=== PATIENT | female | born 1960 | race Caucasian/White ===

== ENCOUNTER 2016-09-18 19:31 | Observation (INO) ==
--- NOTE | 2016-09-18 19:50 | Emergency Department Note ---
Disposition Clinical Impression: Chest pain Qualifiers: Chest pain type: precordial pain Qualified Code(s): R07.2 - Precordial pain Disposition: Admitted As Inpatient Condition: Good Time of Disposition: 21:05 Chest Pain HPI - General Chief Complaint: ED Chest Pain Stated Complaint: CP Time Seen by Provider: 09/18/16 19:41 Source: patient Mode of arrival: ambulatory Limitations: no limitations Vital Signs Reviewed: Yes Nursing Notes Reviewed: Yes - History of Present Illness HPI Narrative: Patient is a 56-year-old female with past medical history of hypertension, hyperlipidemia, BRCA gene and preemptive bilateral mastectomy and total hysterectomy. She presents today due to chest pain that began 30 minutes ago while at rest. She states that the pain is in the center of her chest, came on suddenly, rated 10 out of 10, sharp pressure, with radiation to her back, no nausea vomiting or sweating. She has never had anything like this before. No previous HI or stents. She has had a stress test in the past associated with it was several years ago. No heart catheter in the past. She did take any medications beforehand. Severity scale (1-10): 6 - Related Data Home Medications Medication Instructions Recorded Confirmed FLUoxetine HCl [Prozac] 20 mg PO DAILY 09/18/16 09/18/16 NIFEdipine XL (24 HR) [Procardia 60 mg PO DAILY 09/18/16 09/18/16 XL] Omeprazole [PriLOSEC] 40 mg PO DAILY 09/18/16 09/18/16 Allergies Allergy/AdvReac Type Severity Reaction Status Date / Time morphine Allergy Hives Verified 09/18/16 19:33 Constitutional: Denies: fever Cardiovascular: Reports: chest pain. Denies: palpitations Respiratory: Denies: cough, dyspnea, wheezes Gastrointestinal: Denies: abdominal pain, nausea, vomiting, diarrhea Genitourinary: Denies: urgency, dysuria, dyspareunia Musculoskeletal: Reports: back pain Integumentary: Denies: rash Neurological: Denies: headache, weakness, numbness, paresthesias Chest Pain PMH - Past Medical History Medical history: Reports: GERD, hypertension Psychiatric history: Reports: depression - Social History Smoking Status: Never smoker Alcohol use: Reports: none, occasionally, recent Drug use: Reports: none Physical Exam - General Limitations: no limitations General appearance: alert, in no apparent distress - Head Head exam: atraumatic, normocephalic, normal inspection - Eye Eye exam: Present: normal appearance, PERRL, EOMI - ENT ENT exam: normal exam, mucous membranes moist - Neck Neck exam: Present: normal inspection, full ROM, trachea midline - Chest Chest inspection: Present: normal inspection, symmetric chest wall rise - Respiratory Respiratory exam: Present: normal lung sounds bilaterally - Cardiovascular Cardiovascular exam: Present: regular rate, normal rhythm, normal heart sounds - Abdominal Exam Abdominal exam: Present: soft, Non-Tender. Absent: tenderness, distention, guarding, rebound, rigidity - Extremities Exam Extremities exam: Present: normal inspection, full ROM. Absent: tenderness, pedal edema - Neurological Exam Neurological exam: Present: alert, oriented X3 - Psychiatric Psychiatric exam: Present: normal affect, normal mood - Skin Skin exam: Present: warm, dry, intact, normal color Course Course Narrative: Mildly hypertensive with systolic in 140s. Physical exam showed clear lungs, heart regular rate and rhythm. No abdominal tenderness, abdomen soft and benign. We will give the patient aspirin 325 and nitroglycerin. Her pain is currently 3 out of 10. EKG showed normal sinus rhythm with no acute ST changes , no changes from previous EKG on 04/15/2012. Due to onset 30 minutes ago, will likely need to admit for further chest pain workup and observation. 21:03 troponin 0.00. CBC and BMP not concerning. Chest x-ray negative for any acute cardiopulmonary process. Discussed admission for chest pain brought with patient. We will admit to hospitalist for chest pain rule out. Chest X-Ray 09/18/16 19:44 IMPRESSION: No acute process. D/ / Anupam Ferrer MD / Anupam Ferrer MD Interpreting Provider: Anupam Ferrer MD Vital Signs Temperature 97.5 F L 09/18/16 19:33 Pulse Rate 96 09/18/16 19:33 Respiratory Rate 20 09/18/16 19:33 Blood Pressure 144/86 09/18/16 19:33 O2 Sat by Pulse Oximetry 99 09/18/16 19:33 Temperature 97.5 F L 09/18/16 19:33 Pulse Rate 81 09/18/16 21:09 Respiratory Rate 18 09/18/16 21:09 Blood Pressure 118/70 09/18/16 21:09 O2 Sat by Pulse Oximetry 96 09/18/16 21:09 Oxygen Delivery Oxygen Delivery Room Air Chest Pain - [facility] Narrative Medical decision making narrative: Mildly hypertensive with systolic in 140s. Physical exam showed clear lungs, heart regular rate and rhythm. No abdominal tenderness, abdomen soft and benign. We will give the patient aspirin 325 and nitroglycerin. Her pain is currently 3 out of 10. EKG showed normal sinus rhythm with no acute ST changes , no changes from previous EKG on 04/15/2012. Due to onset 30 minutes ago, will likely need to admit for further chest pain workup and observation. 21:03 troponin 0.00. CBC and BMP not concerning. Chest x-ray negative for any acute cardiopulmonary process. Discussed admission for chest pain brought with patient. We will admit to hospitalist for chest pain rule out. - Medical Records Medical records reviewed: Yes I reviewed the patient's medical records. - Lab Data Lab results reviewed: Yes I reviewed the patient's lab results. Result diagrams: 09/18/16 19:30 09/18/16 19:30 Lab Results 09/18/16 09/18/16 09/18/16 Range/Units 19:30 19:30 19:30 WBC 6.2 (4.3-11.1) K/mcL RBC 3.89 (3.82-4.97) M/mcL Hgb 13.0 (11.5-15.4) g/dL Hct 36.9 (35.3-44.9) % MCV 94.9 (83.0-100.0) fL MCH 33.4 H (28.0-33.3) pg MCHC 35.2 (31.6-35.5) g/dL RDW 12.9 (11.5-14.5) % Plt Count 327 (140-400) K/mcL MPV 8.9 L (9.4-12.4) fL Immature Gran % 0.3 (0-4) % Seg Neutrophils % 52.3 % Lymphocytes % 35.3 % Monocytes % 8.9 % Eosinophils % 2.7 % Basophils % 0.5 % Neutrophils # 3.3 (1.6-8.9) K/mcL Lymphocytes # 2.2 (0.6-4.6) K/mcL Monocytes # 0.6 (0.0-1.3) K/mcL Eosinophils # 0.2 (0.0-0.6) K/mcL Basophils # 0.0 (0.0-0.2) K/mcL PT 10.0 (9.4-12.1) Seconds INR 0.9 APTT 30.3 (26.0-36.0) Seconds D-Dimer 319 (0-500) ng/mLFEU Sodium 143 (136-145) mEq/L Potassium 3.3 L (3.5-4.5) mEq/L Chloride 108 (98-109) mEq/L Carbon Dioxide 22 (19-29) mEq/L BUN 18 (7-20) mg/dL Creatinine 0.82 (0.57-1.11) mg/dL Est GFR ( Amer) > 60 (> 60) Est GFR (Non-Af Amer) > 60 (> 60) BUN/Creatinine Ratio 22 (6-26) Glucose 113 H (70-99) mg/dL Calculated Osmolality 299 (280-300) Calcium 9.4 (8.6-10.8) mg/dL Troponin I (0-0.03) ng/mL 09/18/16 09/18/16 Range/Units 19:30 21:46 WBC (4.3-11.1) K/mcL RBC (3.82-4.97) M/mcL Hgb (11.5-15.4) g/dL Hct (35.3-44.9) % MCV (83.0-100.0) fL MCH (28.0-33.3) pg MCHC (31.6-35.5) g/dL RDW (11.5-14.5) % Plt Count (140-400) K/mcL MPV (9.4-12.4) fL Immature Gran % (0-4) % Seg Neutrophils % % Lymphocytes % % Monocytes % % Eosinophils % % Basophils % % Neutrophils # (1.6-8.9) K/mcL Lymphocytes # (0.6-4.6) K/mcL Monocytes # (0.0-1.3) K/mcL Eosinophils # (0.0-0.6) K/mcL Basophils # (0.0-0.2) K/mcL PT (9.4-12.1) Seconds INR APTT (26.0-36.0) Seconds D-Dimer (0-500) ng/mLFEU Sodium (136-145) mEq/L Potassium (3.5-4.5) mEq/L Chloride (98-109) mEq/L Carbon Dioxide (19-29) mEq/L BUN (7-20) mg/dL Creatinine (0.57-1.11) mg/dL Est GFR ( Amer) (> 60) Est GFR (Non-Af Amer) (> 60) BUN/Creatinine Ratio (6-26) Glucose (70-99) mg/dL Calculated Osmolality (280-300) Calcium (8.6-10.8) mg/dL Troponin I 0.00 0.00 (0-0.03) ng/mL - Radiology Data Radiology results reviewed: Yes I reviewed the patient's radiology results. - EKG Data EKG attestation: Yes I reviewed and interpreted this EKG. EKG results narrative: 09/18/2016 at 19:38. Rate 85. DC 159. QRS 108. QTC 416. Mild left axis deviation. T wave inversions in V1, V2, V3, V4, V5, V6. These are unchanged from previous EKG on 04/15/2012. no signs of STEMI Heart Score - Score History: Moderately Suspicious EKG: Normal Age: 45-65 Risk Factors: 1-2 risk factors Troponin: Less than normal limit HEART Score Total: 3 S.B.A.R. - S.Ximena.A.Kit Situation: Demographics, MOA Background: Presenting Complaint, Relevant PMH, Meds, & Allergies Assessment: Vital Signs, Course and respsone to treatment, Exam Concerns, Patient/Family Expectation, Pertinant Lab Results, Outstanding Labs Recommendation: Barrier(s) to disposition, Recommendation based on pending studies, treatments, or consults S.B.A.R. Report Given to: Dr. Nick CroweBIsabelARain Repor Time: 21:05 Attestation Statement - Attestation Attestation: I examined this patient and my medical decision-making was reviewed with the PASSENGER ELEVATOR OPERATOR/PA/Advanced Practice Nurse/Resident Physician. I agree with the documented findings, disposition and treatment plan as described except to the extent set forth below. Patient eating breathing or chest pain. Sudden onset was sitting in a bar after drinking 2 beers. Patient denies starting after eating. Never had pain like this before. It resolved about 10 minutes prior to her arrival. No cough no fever. No cardiac history. On examination she is awake and alert sitting up in bed in no acute distress. Lungs clear. Plan. Cardiac workup. Troponin negative. Admitted to medicine for further cardiac evaluation.
[2016-09-18] MEDS ORDERED: Nitroglycerin 0.4 MG TAB.SUBL SL PRN ×2 (19:53→21:31)
[2016-09-18] MEDS ORDERED: Aspirin 325 MG TABLET PO ONE (19:53)
[2016-09-18 20:02] LABS: Basophils % 0.5 %; Eosinophils # 0.2 K/mcL (0.0-0.6); Eosinophils % 2.7 %; Hematocrit 36.9 % (35.3-44.9); Immature Granulocytes % 0.3 % (0-4); Lymphocytes # 2.2 K/mcL (0.6-4.6); Lymphocytes % 35.3 %; Mean Corpuscular HGB Conc 35.2 g/dL (31.6-35.5); Mean Corpuscular Hemoglobin 33.4 pg (28.0-33.3); Mean Corpuscular Volume 94.9 fL (83.0-100.0); Mean Platelet Volume 8.9 fL (9.4-12.4); Monocytes # 0.6 K/mcL (0.0-1.3); Monocytes % 8.9 %; Neutrophils # 3.3 K/mcL (1.6-8.9); Platelet Count 327 K/mcL (140-400); Red Blood Count 3.89 M/mcL (3.82-4.97); Red Cell Distribution Width 12.9 % (11.5-14.5); Segmented Neutrophils % 52.3 %
[2016-09-18 20:09] LABS: INR 0.9
[2016-09-18 20:11] LABS: Activated Partial Thrombo Time 30.3 Seconds (26.0-36.0)
[2016-09-18 20:14] LABS: BUN/Creatinine Ratio 22 (6-26); Blood Urea Nitrogen 18 mg/dL (7-20); Calcium 9.4 mg/dL (8.6-10.8); Carbon Dioxide 22 mEq/L (19-29); Chloride 108 mEq/L (98-109); Glucose 113 mg/dL (70-99); Osmolality,Calculated 299 (280-300); Potassium 3.3 mEq/L (3.5-4.5); Sodium 143 mEq/L (136-145); eGFR For African Americans > 60 (> 60); eGFR For Non-African Americans > 60 (> 60)
[2016-09-18] MEDS ORDERED: Ipratropium/Albuterol Neb 3 ML IH PRN (21:31)
[2016-09-18] MEDS ORDERED: Naloxone 0.4 MG/ML INJ IVP PRN (21:33)
[2016-09-18] MEDS ORDERED: Acetaminophen 325 MG TABLET PO PRN (21:33)
[2016-09-18] MEDS ORDERED: Ondansetron 4 MG/2 ML VIAL IVP PRN (21:33)
--- NOTE | 2016-09-18 21:36 | Event Note ---
Date of Encounter: 09/18/16 Time of Encounter: 21:35 1. Chest pain Continue aspirin, monitor troponins, telemetry Stress test in the morning, check echocardiogram looking for wall motion abnormalities 2. Hypokalemia, replete as needed 3. Hypertension, stable 4. History of brca Note to follow by BETH Nielsen.
--- NOTE | 2016-09-18 21:45 | Internal Med History&Physical ---
<Merline Nielsen M - Last Filed: 09/18/16 21:56> Date of Encounter: 09/18/16 Time of Encounter: 21:39 Assessment and Plan (1) Chest pain Current visit: Yes Status: Acute Patient with sudden severe chest pain accompanied by lightheadedness, shortness of breath and weakness. Episode lasted approximately 20 minutes and resolved on its own. EKG showed normal sinus rhythm with no acute ST changes. Troponin negative at 0.0, D-dimer normal at 315. Patient with risk factors of hypertension. Will rule out ACS. Continuous customer support engineer serial troponins echocardiogram and stress test in the morning Lipid panel with morning labs Aspirin and atorvastatin daily Qualifiers: Chest pain type: precordial pain Qualified Code(s): R07.2 - Precordial pain (2) Hypokalemia Current visit: Yes Status: Acute Potassium of 3.3. 40mEq of PO potassium ordered. Recheck chemistry tomorrow morning. (3) Hypertension Current visit: Yes Status: Acute Has been controlled since arrival. Continue home dose of Nifedipine. Hydralazine PRN Qualifiers: Hypertension type: essential hypertension Qualified Code(s): I10 - Essential (primary) hypertension (4) DVT prophylaxis Current visit: Yes Status: Acute Up ad jesus Lovenox 40mg SQ daily Internal Medicine - H&P: HPI Chief complaint: chest pain Admitted From: Emergency Dept Plans for Post Hospital Care: Home History of present illness: Ms. Abebe is a 56 year old female with hypertension, GERD, and BRCA+ gene s/p prophylactic bilateral mastectomy and hysterectomy who presented to the ED today with complaint of chest pain that started 30 minutes prior to arrival. She reports the pain was sudden, severe, located in the middle of her chest and radiating to her back between her shoulder blades. She describes the pain as crushing, and it was accompanied by lightheadedness, shortness of breath and weakness. The pain started to go away on its own after about 20 minutes and by the time of my assessment, patient was pain-free. She denies any headache, palpitations, recent fever, chills, sweats, nausea, vomiting, or abdominal pain. Evaluation in the ED included an EKG which showed normal sinus rhythm wiht no acute ST changes and no changes from previous EKG in 2012. CXR showed no acute process. Troponin was negative at 0.0. D-dimer was normal at 315. She was mildly hypokalemic with potassium of 3.3. On exam, she was alert and oriented, in no acute distress. Heart had regular rate and rhythm and lungs were clear to auscultation bilaterally. Past Med Surg Social Fam HX - Past Medical History Medical history: GERD, hypertension Psychiatric history: depression - Past Surgical History Surgical History: breast surgery, hysterectomy - Social History Smoking Status: Never smoker Smokeless Tobacco Status: No Alcohol use: occasionally, recent Drug use: none - Family History Mother Living Status: Age at : 63 Cause of : Breast cancer Hx Family Cancer: Yes Father Living Status: Age at : 63 Cause of : Pancreatic cancer Hx Family Cancer: Yes Internal Medicine - H&P: Meds FLUoxetine HCl [Prozac] 20 mg PO DAILY 09/18/16 [History] NIFEdipine XL (24 HR) [Procardia XL] 60 mg PO DAILY 09/18/16 [History] Omeprazole [PriLOSEC] 40 mg PO DAILY 09/18/16 [History] Allergies morphine Allergy (Verified 09/18/16 19:33) Hives All Systems PM: A 10-system review of systems was performed and is negative for pertinent findings except as documented above in the HPI. - Constitutional Constitutional: weakness, no chills, no fever(s), no night sweats - EENT Eyes: no change in vision, no discharge, no pain, no photophobia Ears: no ear discharge, no ear pain, no tinnitus Nose, mouth and throat: no dysphagia, no nasal discharge, no neck pain, no sore throat - Cardiovascular Cardiovascular ROS IM: chest pain, dyspnea, lightheadedness, no diaphoresis, no palpitations, no syncope - Respiratory Respiratory: no cough, no dyspnea, no wheezing, no excessive phlegm production - Gastrointestinal Gastrointestinal: no abdominal pain, no diarrhea, no hematemesis, no hematochezia, no melena, no nausea, no vomiting - Genitourinary Genitourinary: no change in urinary stream, no dysuria, no flank pain, no hematuria - Musculoskeletal Musculoskeletal ROS IM: no numbness, no tingling - Integumentary Integumentary IM: no rash, no unusual bruising - Neurological Neurological ROS: no confusion, no convulsions, no focal weakness, no numbness, no tingling, no tremor(s) - Hematologic/Lymphatic Hematologic/Lymphatic: no easy bruising - Constitutional Vitals: Temp Pulse Resp BP Pulse Ox 97.5 F L 81 18 118/70 96 09/18/16 19:33 09/18/16 21:09 09/18/16 21:09 09/18/16 21:09 09/18/16 21:09 General appearance: Present: A&O X 3, pleasant, no acute distress - Head Head exam: Present: atraumatic, normocephalic - Eye Eye exam: Present: PERRL, conjuntiva pink, sclera anicteric Pupils: Present: PERRL - Neck Neck exam general surgery: Present: supple, trachea midline. Absent: lymphadenopathy - Respiratory Respiratory exam: Present: CTAB. Absent: accessory muscle use, rales, rhonchi, wheezes - Cardiovascular Cardiovascular exam: Present: RRR, +S1, +S2. Absent: diastolic murmur, gallop, rubs, systolic murmur - GI/Abdominal GI/Abdominal exam: Present: normal bowel sounds, soft, no peritoneal signs. Absent: distended, tenderness - Extremities Exam Extremities exam: Present: warm, radial pulses palpable and symetrical. Absent : calf tenderness, cyanotic, pedal edema - Neurological Exam Neurological exam: Present: CN II-XII intact, oriented X3, no focal deficits. Absent: facial droop, speech deficit - Skin Skin exam: Present: dry, intact Internal Med - H&P Results - Labs CBC & Chem 7: 09/18/16 19:30 09/18/16 19:30 Labs: Short CBC 09/18/16 Range/Units 19:30 WBC 6.2 (4.3-11.1) K/mcL Hgb 13.0 (11.5-15.4) g/dL Hct 36.9 (35.3-44.9) % Plt Count 327 (140-400) K/mcL Neutrophils # 3.3 (1.6-8.9) K/mcL BMP 09/18/16 19:30 Sodium 143 Potassium 3.3 L Chloride 108 Carbon Dioxide 22 BUN 18 Creatinine 0.82 Glucose 113 H Calcium 9.4 Cardiac Enzymes 09/18/16 Range/Units 19:30 Troponin I 0.00 (0-0.03) ng/mL - Impressions ITS Impressions Chest X-Ray 09/18/16 19:44 IMPRESSION: No acute process. D/ / Anupam Ferrer MD / Anupam Ferrer MD Interpreting Provider: Anupam Ferrer MD - Diagnostic Studies Chest x-ray Additional comments: Chest X-Ray 09/18/16 19:44 IMPRESSION: No acute process. D/ / Anupam Ferrer MD / Anupam Ferrer MD Interpreting Provider: Anupam Ferrer MD <Denis Holt H - Last Filed: 09/19/16 00:13> Date of Encounter: 09/19/16 Internal Medicine - H&P: HPI History of present illness: Ms. Abebe is a 56 year old female All Systems PM: A 10-system review of systems was performed and is negative for pertinent findings except as documented above in the HPI. - Constitutional Vitals: Temp Pulse Resp BP Pulse Ox 97.5 F L 72 18 145/85 96 09/18/16 23:26 09/18/16 23:26 09/18/16 23:26 09/18/16 23:26 09/18/16 23:26 Internal Med - H&P Results - Labs CBC & Chem 7: 09/18/16 19:30 09/18/16 19:30 - Attending Attestation 1. Chest pain Continue aspirin, monitor troponins, telemetry Stress test in the morning, check echocardiogram looking for wall motion abnormalities 2. Hypokalemia, replete as needed 3. Hypertension, stable 4. History of brca I examined this patient and my medical decision-making was reviewed with the HAIR DRYER/PA/Advanced Practice Nurse/Resident Physician. I agree with the documented findings, disposition and treatment plan as described except to the extent set forth below.
[2016-09-19 04:48] LABS: BUN/Creatinine Ratio 17 (6-26); Blood Urea Nitrogen 12 mg/dL (7-20); Carbon Dioxide 26 mEq/L (19-29); Chloride 108 mEq/L (98-109); Chol/HDL Ratio 3.9 (0-4.9); Cholesterol 240 mg/dL (< 200); Glucose 94 mg/dL (70-99); HDL Cholesterol 62 mg/dL (40-59); LDL Cholesterol,Calculated 163 mg/dL (0-99); Osmolality,Calculated 296 (280-300); Potassium 3.9 mEq/L (3.5-4.5); Sodium 143 mEq/L (136-145); Triglycerides 76 mg/dL (< 150); eGFR For African Americans > 60 (> 60); eGFR For Non-African Americans > 60 (> 60)
[2016-09-19] MEDS ORDERED: *HR* Enoxaparin 40 MG/0.4 ML SYRINGE SQ SCH (06:00)
[2016-09-19] MEDS ORDERED: NIFEdipine XL (24 HR) 60 MG TAB.ER.24 PO SCH (09:00)
[2016-09-19] MEDS ORDERED: FLUoxetine 20 MG CAPSULE PO SCH (09:00)
[2016-09-19] MEDS ORDERED: Aspirin 81 MG TAB.CHEW PO SCH (09:00)
[2016-09-19 11:19] VITALS: BP 125/83
--- NOTE | 2016-09-19 11:39 | Nuclear Medicine Stress Report ---
Exercise Nuclear Stress Name: Naomy Abebe Date of Study: 09/19/2016 Date: 1960 Ht: 61.0 in Medical Record#: [id number] Age: 56 Wt: 154.0 lb Gender: Female Order #: [id number] Location: [facility] Room: [facility] Supervising Provider: Facundo Summers CNP Reading Physician: [place] Vallejo MD, [facility] Ordering Physician: Jordana Kumar CNP Primary Care Physician: Anupam Woodruff DO Stress Technologist: Zainab Kitchen, YADIRA,[facility] Senior Coldfusion Developer: Mathew Lieberman Indications: Chest Pain Impression: Perfusion imaging was negative for ischemia or infarct. Exercise ECG was negative for ischemia. Exercise capacity was average. Patient had no chest pain with stress. No arrhythmias noted with stress. Gated EF = >70%. The LV is not dilated. There is evidence of TID. Stress Test Summary: Stress Test Type: Treadmill Protocol: [place] Baseline Information: Initial Heart Rate: 86 Blood Pressure: 132/82 Stress Information: Stress Time: 7 min 08 sec Test Terminated Due to (primary): Fatigue Maximum Blood Pressure: 132/50 Maximum Heart Rate: 147 Percent Maximum Heart Rate Achieved: 91 Double Product: [id number] METS Reached: 10.1 Symptoms: Fatigue Nuclear Summary: SPECT myocardial perfusion imaging using Tc99m Sestamibi given intravenously was performed at rest and following cardiac stress testing. The resting images were obtained following initial dose of 11.7 mCi. Following stress an additional dose of 33 mCi was given at peak exercise or 30 seconds post regadenoson infusion. Medication Given: Time Medication Dose Units Route Findings: Stress Note * Resting ECG demonstrated normal sinus rhythm. * No baseline arrhythmias were noted. * Exercise ECG is negative for ischemia. * No arrhythmias were noted during stress. * No chest pain or arrhythmias during stress. * The exercise capacity was average. Hemodynamic responses * Normal hemodynamic responses to exercise. Gated EF > 70% * Gated EF > 70%. Study Quality * Study quality is good. Left Ventricle * The left ventricle is not dilated. NORMALS * Normal wall motion. * All other segmental perfusion normal in stress. * All other segmental perfusion normal in rest. Apical Perfusion Stress * The apex segment shows a mild reduction in perfusion. Apical Perfusion Rest * The apex segment shows a moderate reduction in perfusion. TID * No evidence of transient ischemic dilatation. Updated by [place] Vallejo MD, FACC on 09/19/2016 11:35:59 AM electronically signed on 09/19/2016 11:36:21 AM with status of Final
--- NOTE | 2016-09-19 13:53 | ECHO - Doppler Report ---
Echocardiogram Name: Naomy Abebe Date of Study: 09/19/2016 Date: 1960 Ht: 61.0 in Medical Record#: [id number] Age: 56 Wt: 154.0 lb Gender: Female BSA: 1.69 Order #: [id number] Location: [facility] Room #: [id number] Reading Physician: [place] Vallejo MD, [facility] Software Engineering Project Manager: Bernice Patino RVT Ordering Physician: Denis Holt MD Primary Physician: Anupam Woodruff DO Indications: Chest pain Impressions: LVEF 55-60%. Mild left ventricular diastolic dysfunction. No segmental dysfunction. No significant valvular dysfunction. Left Ventricular Wall Motion: Rest Echo Findings All wall segments showed normal motion. Findings: Study Quality * Technically adequate exam. Right Ventricle * Normal right ventricular structure and function. Left Atrium * Normal left atrial size. Right Atrium * Normal right atrial size. Aortic Valve * Trileaflet aortic valve with normal function. Interatrial Septum * No evidence of PFO by color Doppler. Aorta * Normally sized aortic root. Pericardium * The pericardium appears normal. Tricuspid Valve * Trace tricuspid regurgitation. * No tricuspid stenosis. * Unable to estimate RVSP Pulmonic Valve * No pulmonic regurgitation. * No pulmonic stenosis. Left Ventricle * LVEF 55-60%. * Mild left ventricular diastolic dysfunction. * No segmental dysfunction. Mitral Valve * Normal mitral valve structure. * No mitral stenosis. * Trace mitral regurgitation. IVC * Normal IVC dimensions and inspiratory collapse. History Hypertension Rheumatic Fever Measurements: BP: 120/ 77 2D Normal Values RVIDd: 2.43 cm <2.7 cm IVSd: .84 cm 0.6 - 1.0 cm LVIDd: 5.01 cm 3.7 - 5.6 cm LVPWd: .84 cm 0.6 - 1.1 cm LVIDs: 4.02 cm 1.5 - 3.6 cm AO: 2.50 cm < 4.0 cm LA: 3.70 cm 2.0 - 4.0cm %FS: 19.80 cm >25 % LA volume: 47.7 Mitral Valve Peak E:.71 m/sec Peak A:.87 m/sec E/A Ratio:0.8 Peak E' Lat Sincere:6.59 cm/s Peak E' Med Sincere:4.85 cm/s E/E' Lat Ratio:10.8 E/E' Med Ratio:14.7 Tricuspid Valve TV Regurg Peak Grad: 3.00mmHg TV Regurg Peak Sincere: .93m/sec Updated by [place] Vallejo MD, [facility] on 09/19/2016 1:48:01 PM electronically signed on 09/19/2016 1:48:16 PM with status of Final Wall Motion [place]: 1=Normal, 2=Hypokinesis, 3=Akinesis, 4=Dyskinesis, 5=Aneurysmal, 6=Hyperkinetic, X=Not Visualized (Blank)=Missing
--- NOTE | 2016-09-19 14:31 | Discharge Summary ---
Date of Encounter: 09/19/16 Time of Encounter: 14:00 - Discharge Diagnosis (1) Chest pain Priority: Primary Status: Resolved Comments: Patient denied chest pain or shortness of breath throughout this admission. Troponins negative 3. Stress test negative. Echocardiogram unremarkable with ejection fraction 55-60%. ACS ruled out. Qualifiers: Chest pain type: precordial pain Qualified Code(s): R07.2 - Precordial pain (2) S/P mastectomy, bilateral Priority: Secondary Status: Chronic (3) Hypokalemia Priority: Primary Status: Resolved (4) Hypertension Priority: Secondary Status: Chronic Comments: Controlled at home with her regular procardia 60 mg daily, follow-up outpatient Qualifiers: Hypertension type: essential hypertension Qualified Code(s): I10 - Essential (primary) hypertension (5) DVT prophylaxis Priority: Primary Status: Acute Comments: Subcutaneous Lovenox while admitted (6) Hyperlipidemia Priority: Primary Status: Acute Comments: Appears to be a new diagnosis for this patient, started on a statin and educated on low cholesterol diet - Discharge Medications Prescriptions: Atorvastatin [Lipitor] 40 mg PO HS #30 tablet Home Medications: FLUoxetine HCl [Prozac] 20 mg PO DAILY 09/18/16 [History] NIFEdipine XL (24 HR) [Procardia XL] 60 mg PO DAILY 09/18/16 [History] Omeprazole [PriLOSEC] 40 mg PO DAILY 09/18/16 [History] Atorvastatin [Lipitor] 40 mg PO HS #30 tablet 09/19/16 [Rx] Allergies/Adverse Reactions: Allergies morphine Allergy (Verified 09/18/16 19:33) Hives Date of admission: 09/18/16 21:47 Primary care physician: Neftaly Woodruff, Discharging clinician: Jordana Kumar Anticipated date of discharge: 09/19/16 - Patient Status Disposition: Home, Self-Care Condition: Good Functional capacity at discharge: independent ambulation Overall status at discharge: patient is back to baseline - Discharge Instructions Instructions: Chest Pain (DC) Follow Up With: Neftaly Woodruff DO [Primary Care Provider] - (Appointment has been requested. The doctor's office will call at the beginning of the week with an appointment day and time.) Additional Instructions: Follow-up with primary care provider in one to 2 weeks - Diet and Activity Activity: increase activity as tolerated Diet: low fat, low cholesterol, low salt diet Hospital course: Ms. Abebe is a 56 year old female with past medical history of hypertension, GERD, BRCA positive gene status post prophylactic bilateral mastectomy and hysterectomy. Patient presented to emergency for chief complaint of chest pain that started 30 minutes prior to presentation. Patient stated the pain was sudden, severe, located in the middle of her chest, and radiated to her back between her shoulder blades. She stated the pain was crushing and was associated with lightheadedness, shortness of breath, and weakness. Patient started to go away on its own after about 20 minutes and she was chest pain- free upon presentation. Patient denied any headaches, palpitations or other symptoms. Workup in the emergency department unremarkable. No ischemic ECG changes. Chest x-ray negative. Troponins negative. Patient was admitted to the hospitalist service for further evaluation and management. Troponins negative 3. Echocardiogram unremarkable with ejection fraction 55-60% and mild diastolic dysfunction. Patient euvolemic on examination throughout this admission. She denied chest pain or shortness of breath throughout this admission as well. She had an exercise nuclear stress test that was also unremarkable. ACS ruled out. Upon further discussion with the patient, she recently had bilateral mastectomy with subsequent placement of breast implants. She was instructed to follow up outpatient for possible rule out of any adhesions or postsurgical issues that could have caused this chest pain. She was also noted to be hyperlipidemic with total cholesterol 240 and LDL 163 and she was started on a statin and educated on a low-cholesterol diet. She had mild hypokalemia that resolved. She was discharged home in stable condition with close outpatient follow-up recommended. ITS Impressions Chest X-Ray 09/18/16 19:44 IMPRESSION: No acute process. D/ / Anupam Ferrer MD / Anupam Ferrer MD Interpreting Provider: Anupam Ferrer MD Echocardiogram impressions: LVEF 55-60%. Mild left ventricular diastolic dysfunction. No segmental dysfunction. No significant valvular dysfunction. Exercise nuclear stress test impression: Perfusion imaging was negative for ischemia or infarct. Exercise ECG was negative for ischemia. Exercise capacity was average. Patient had no chest pain with stress. No arrhythmias noted with stress. Gait ejection fraction is greater than 70%. LV is not dilated. There is evidence of TID. - Time Spent with Patient Total time spent providing and/or coordinating discharge services: - Constitutional Vitals: Temp Pulse Resp BP Pulse Ox 98.8 F 77 14 125/83 97 09/19/16 11:17 09/19/16 11:17 09/19/16 11:17 09/19/16 11:17 09/19/16 11:17 General appearance: Present: A&O X 3, pleasant, no acute distress, answers questions appropriately - Head Head exam: Present: atraumatic, normocephalic - Eye Eye exam: Present: PERRL, conjuntiva pink, sclera anicteric Pupils: Present: PERRL - Neck Neck exam general surgery: Present: supple, trachea midline. Absent: lymphadenopathy - Respiratory Respiratory exam: Present: CTAB. Absent: accessory muscle use, rales, respiratory distress, rhonchi, wheezes - Cardiovascular Cardiovascular exam: Present: RRR, +S1, +S2. Absent: diastolic murmur, gallop, rubs, systolic murmur - GI/Abdominal GI/Abdominal exam: Present: normal bowel sounds, soft, no peritoneal signs. Absent: distended, tenderness - Extremities Exam Extremities exam: Present: warm, radial pulses palpable and symetrical. Absent : calf tenderness, cyanotic, pedal edema - Neurological Exam Neurological exam: Present: alert, CN II-XII intact, normal gait, oriented X3, no focal deficits, strengths equal and symetr throughout. Absent: pronater drift, facial droop, speech deficit - Skin Skin exam: Present: dry, intact, normal color, warm
--- NOTE | 2016-09-20 20:08 | Electrocardiograph Report ---
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
== END 2016-09-19 15:15 | disposition home or self-care (01) ==
LOC: 3BNU 19:31 → EMEROO 19:31 → 3BNU 23:01
PROVIDERS: ADMIT Internal Medicine; ATTEND Nurse Practitioner Family